=== PATIENT | male | born 1985 | race African-American/Black ===

== ENCOUNTER 2019-08-21 09:27 | Emergency (ER) | payer OTHER, SELFPAY ==
--- NOTE | ~2019-08-21 | XR_ITS ---
EXAMINATION: XR tibia fibula LT 2V EXAM DATE: 08/21/2019 10:13 INDICATION: Dog bite, mid leg lacerations. TECHNIQUE: Left tibia/fibula frontal and lateral projections obtained and reviewed. There is no prio r study for comparison. FINDINGS: Left tibial and fibular shafts unremarkable. There are no acute fractures or dislocations identified. There is laceration identified along the anterolateral aspect of the leg. There are no radiopaque foreign bodies. IMPRESSION: 1. XR tibia fibula LT 2V exam without acute osseous findings. 2. Soft tissue laceration. Reviewed, dictated and finalized at location A.
[2019-08-21 09:35] VITALS: BP 128/75; PULSE 96; RESP 16; TEMP 37.1; O2SAT 98
--- NOTE | 2019-08-21 10:15 | ED.ANIMALBIT ---
HPI - Animal Bite General Chief Complaint: Animal Bite Stated Complaint: dog bite Time Seen by Provider: 08/21/19 09:54 Source: patient Mode of arrival: ambulatory Limitations: no limitations History of Present Illness HPI narrative: This patient is a 33 year old male who presents for evaluation of multiple dog bite wounds. Just prior to arrival patient states he was trying to break up a fight between 2 dogs and one of the attacked him. This dog bite him on his left lower leg. He has multiple wounds to left lower leg. He reports soreness to his leg. He denies numbness tingling or weakness. His last tetanus has been in past 5 years. Related Data Allergies Allergy/AdvReac Type Severity Reaction Status Date / Time No Known Allergies Allergy Verified 08/21/19 09:55 Review of Systems Review of Systems: All systems reviewed & are unremarkable except as noted in HPI and below Constitutional: Constitutional: Denies chills, Denies fever(s) and Denies weakness Gastrointestinal: Gastrointestinal: Denies nausea Integumentary/Breasts: Comments: laceration PMFSH Past Medical History Medical History (Updated 08/21/19 @ 12:32 by Ninfa Breaux MD) Patient denies medical problems Surgical History Surgical History (Updated 08/21/19 @ 10:17 by Ninfa Breaux MD) Hx of LASIK Hx of tonsillectomy Social History Social History (Updated 08/21/19 @ 10:17 by Ninfa Breaux MD) Smoking status: Never smoker Alcohol intake: never Exam Const: General: no acute distress and alert Orientation/consciousness: patient oriented x3 HENMT: Head: normocephalic and atraumatic Face and sinus: face symmetric Eyes: EOM: EOMs intact bilaterally Resp: Effort & Inspection: normal respiratory effort Skin: Other: left lower leg with bite markes. There are 2 larger wound on anterior reeves approximately 4 cm into subucutaneous and 4 cm into subcutaneous, there is 3 puncture wounds on posterior leg Neuro: General: patient oriented x3 and moves all extremities Course Reevaluation(s) Reevaluation #1: I Discussed with patient that with animal bites it is at risk for getting infected. I Discussed wound management with stitches vs secondary healing. He understands healing may be longer but he is agreeable to no stitched due to risk of infection. I discussed what to look for as in fection. He will follow up with primary care physician in [place] for wound assessement. I irrigated both wounds with 1000ml ns Date: 08/21/19 Time: 12:27 Vital Signs Vital signs: Vital Signs Temperature 98.7 F 08/21/19 09:35 Pulse Rate 96 08/21/19 09:35 Respiratory Rate 16 08/21/19 09:35 Blood Pressure 128/75 08/21/19 09:35 Pulse Oximetry 98 08/21/19 09:35 Temperature 98.7 F 08/21/19 09:35 Pulse Rate 84 08/21/19 12:55 Respiratory Rate 16 08/21/19 12:55 Blood Pressure 119/69 08/21/19 12:55 Pulse Oximetry 98 08/21/19 12:55 Discharge Plan Discharge Clinical Impression: Dog bite of multiple sites of left lower extremity Qualifiers: Encounter type: initial encounter Qualified Code(s): S81.852A - Open bite, left lower leg, initial encounter Patient Disposition: Home, Self-Care Condition: Stable Instructions: Antibiotic Form, Laceration (ED), Chronic Wounds (ED), Acute Wounds (ED) Additional Instructions: Today you were evaluated for dog bites. These wounds have increased change of getting infected. you will need to perform wet to dry dressing changes daily to your wound. This will heal but it may take longer than normal. Watch for sigs of infection. If you develop infection you will need to go to ER for IV antibiotics. Prescriptions: New amoxicillin-pot clavulanate 875-125 mg tablet 1 tablet PO Q12H Qty: 20 RF: 0 ibuprofen 800 mg tablet 800 mg PO TID PRN (Reason: pain) Qty: 14 RF: 0 Follow-up/Referrals: PHYSICIAN NOT ON STAFF,NONSTAFF [Primary Care Provider] - Stand Al
[2019-08-21] MEDS: IBUPROFEN 400 MG TABLET 800 MG PO (10:38)
[2019-08-21] MEDS: AMOXICILLIN/CLAVULANATE K 875-125 MG TAB 1 TABLET PO (11:48)
[2019-08-21 12:55] VITALS: BP 119/69; PULSE 84; RESP 16; O2SAT 98
== END 2019-08-21 12:55 | disposition home or self-care (01) ==
PROVIDERS: Emergency Provider General Practice
DX: S81.852A Open bite, left lower leg, initial encounter (principal); W54.0XXA Bitten by dog, initial encounter
CPT/HCPCS: 73590; 99283; A9270; J7030